=== PATIENT | female | born 1990 | race Caucasian/White ===

== ENCOUNTER 2018-06-09 11:06 | Inpatient (IN) | payer BC ==
[~2018-06-09 11:06] MED LIST: ROPIVACAINE 5MG/ML 20ML VIAL ONE; SODIUM CHLORIDE 0.9% 100 ML BAG ONE; fentaNYL (PF) 50 MCG/ML 5 ML AMP ONE
[2018-06-09] MEDS: LACTATED RINGERS 1,000 ML IV SCH ×2 (12:00→20:14)
[2018-06-09 12:15] LABS: Basophils % (A) 0 %; Eosinophils # (A) 0.1 k/uL (0-0.7); Eosinophils % (A) 1 %; HCT 42.1 % (34.0-46.0); HGB 14.1 gm/dL (11.4-16.0); Lymphocytes # (A) 1.8 k/uL (1.0-4.8); Lymphocytes % (A) 12 %; MCH 28.8 pg (25.0-35.0); MCHC 33.5 g/dL (31.0-37.0); MCV 85.8 fL (80.0-100.0); Mean Platelet Volume 7.2; Monocytes # (A) 0.7 k/uL (0-1.0); Monocytes % (A) 5 %; Neutrophils # (A) 12.1 k/uL (1.3-7.7); Neutrophils % (A) 81 %; Platelet Count 265 k/uL (150-450); RBC 4.91 m/uL (3.80-5.40); RDW 14.2 % (11.5-15.5)
[2018-06-09 12:25] LABS: ALT 33 U/L (9-52); AST 24 U/L (14-36); Blood Urea Nitrogen 9 mg/dL (7-17); LDH 469 U/L (313-618)
[2018-06-09 12:27] LABS: Amorphous Sediment,Urine Rare /hpf; Appearance,Urine Clear (Clear); Bacteria,Urine Occasional /hpf; Bilirubin,Urine Negative (Negative); Blood,Urine Negative (Negative); Color,Urine Light Yellow; Glucose,Urine (UA) Negative (Negative); Ketones,Urine Negative (Negative); Leukocyte Esterase,Urine Moderate (Negative); Nitrite,Urine Negative (Negative); Protein,Urine Negative (Negative); RBC,Urine 1 /hpf (0-5); Specific Gravity,Urine 1.006 (1.001-1.035); Squamous Epithelial Cell,Urine 3 /hpf (0-4); Urobilinogen,Urine <2.0 mg/dL (<2.0); WBC,Urine 25 /hpf (0-5)
[2018-06-09] MEDS ORDERED: DINOPROSTONE 10 MG INSERT.ER VAGINAL ONE (12:51)
[2018-06-09 13:03] VITALS: BMI 37.3
--- NOTE | 2018-06-09 13:11 | P.HPOB ---
History of Present Illness H&P Date: 06/09/18 Chief Complaint: High blood pressure This patient is a pleasant 28-year-old 1 para 0 female estimated date of confinement 06/30/2018 estimated gestational age 37-0/7 weeks who presents to labor and delivery after calling me this morning with an elevated blood pressure at home of 147/97. Patient's care is per Dr. Sanders has been complicated by maternal mild pulmonary stenosis. Patient states this was diagnosed at age 25 after having a routine physical exam. It causes her no physical limitations and she is asymptomatic from this. She follows with Dr. Cisse, cardiology, before this. Most recently she had a cardiac echo that showed an EF of 55% with an average pulmonary gradient of 8. The health analytics consultant and maternal- medicine feel that her stenosis is mild and should not have implications for delivery. Patient's had no blood pressure problems in this however has had some mild elevations of 130/88 at 32 weeks. Patient' s blood pressure care and admission is 172/111. Serial repeat blood pressures are in the 140-150/90-100 range. Patient is completely asymptomatic without complaints of headache, blurry vision, swelling, right upper gastric pain. heart tones are reactive. Most recent obstetrical ultrasound showed the infant's weight to be approximately 6 pounds with normal KARUNA. Review of Systems Genitourinary: Reports Menstruation: Reports amenorrhea Past Medical History Additional Past Medical History / Comment(s): Patient has known congenital mild pulmonary stenosis. Irritable bowel syndrome History of Any Multi-Drug Resistant Organisms: None Reported Past Surgical History: No Surgical Hx Reported Past Psychological History: No Psychological Hx Reported Smoking Status: Never smoker Past Alcohol Use History: None Reported Past Drug Use History: None Reported Medications and Allergies Home Medications Medication Instructions Recorded Confirmed Type 78/Iron/Folate 1/Dha 1 tab PO ONCE 04/28/18 06/09/18 History [Prenate Dha Softgel] Allergies Allergy/AdvReac Type Severity Reaction Status Date / Time azithromycin Allergy Rash/Hives Verified 06/09/18 11:32 minocycline HCl Allergy Rash/Hives Verified 06/09/18 11:32 [From Minocin] minocycline [From Minocin] AdvReac Rash/Hives Verified 06/09/18 11:32 Exam Intake and Output 06/08/18 06/09/18 06/09/18 22:59 06:59 14:59 Other: Weight 104.78 kg - OBG Physical Exam Abdomen: bowel sounds normal, no diffuse tenderness, no bruit present, no guarding noted, no hepatomegaly, no splenomegaly, no mass Vulva: both: normal Vagina: normal moisture, no discharge Cervix: no lesion (Cervix is 1 cm and thick.), no discharge Uterus: enlarged (Fundal height in the office is 37 cm) Results Preeclampsia labs are normal. heart tracing is reactive. Group B strep was negative. Blood type is O+. Result Diagrams: 06/09/18 12:00 06/09/18 12:00 Abnormal Lab Results - Last 24 Hours (Table) 06/09/18 06/09/18 Range/Units 12:00 12:00 WBC 15.0 H (3.8-10.6) k/uL Neutrophils # 12.1 H (1.3-7.7) k/uL Ur Leukocyte Esterase Moderate H (Negative) Urine WBC 25 H (0-5) /hpf Amorphous Sediment Rare H (None) /hpf Urine Bacteria Occasional H (None) /hpf Assessment and Plan Assessment: This is a pleasant 28-year-old 1 para 0 female 37-0/7 weeks gestation who is admitted to the hospital with gestational hypertension. Patient is asymptomatic and does not have features consistent with preeclampsia. Due to the significant blood pressure elevation at 37 weeks, we are recommending to proceed with induction of labor and delivery. I discussed this with the patient and her and they understand and wish to proceed. Because she has an unfavorable cervix and blood pressures are stable at this time, we'll proceed with Cervidil placement and then Pitocin induction thereafter. If there is evidence of concerns or uncontrollable blood pressure then we will proceed with section. (1) 37 weeks gestation of Current Visit: Yes Status: Acute Code(s): Z3A.37 - 37 WEEKS GESTATION OF SNOMED Code(s): 43127555 (2) Gestational hypertension Current Visit: Yes Status: Acute Code(s): O13.9 - GESTATIONAL HTN W/O SIGNIFICANT PROTEINURIA, UNSP TRIMESTER SNOMED Code(s): 079171845 (3) Pulmonary stenosis Current Visit: Yes Status: Chronic Code(s): I37.0 - NONRHEUMATIC PULMONARY VALVE STENOSIS SNOMED Code(s): 84079381
[2018-06-09 13:33] LABS: INR 0.9 (<1.2); Partial Thromboplastin Time 24.8 sec (22.0-30.0); Prothrombin Time 9.3 sec (9.0-12.0)
[2018-06-09] MEDS: LABETALOL 100 MG TAB PO SCH (13:44)
--- NOTE | 2018-06-09 17:52 | P.PN ---
Progress Note - Text Progress Note Date: 06/09/18 Patient's blood pressures have come down to 130-140 over 80-90s. I did give the patient one dose of oral labetalol 100 mg at around 2:00. Patient continues to be without complaints. Cervidil was placed. I discussed induction process and will begin Pitocin after the Cervidil was removed in the morning. heart tones are reactive.
[2018-06-09] MEDS: BUTORPHANOL 1 MG/ML 1 ML VIAL IV PRN (22:18)
[2018-06-10] MEDS ORDERED: LABETALOL 100 MG TAB PO SCH (00:36)
[2018-06-10] MEDS: BUTORPHANOL 1 MG/ML 1 ML VIAL IV PRN (01:36)
[2018-06-10] MEDS: LABETALOL 100 MG TAB PO SCH ×3 (01:36→15:01)
[2018-06-10] MEDS: LACTATED RINGERS 1,000 ML IV SCH ×3 (04:43→21:19)
[2018-06-10] MEDS ORDERED: TERBUTALINE 1 MG/ML VIAL SQ PRN (05:37)
[2018-06-10] MEDS ORDERED: OXYTOCIN 20 UNITS/1000 ML NS 1,000 ML IV SCH ×2 (05:37→13:37)
[2018-06-10] MEDS ORDERED: OXYTOCIN 10 UNIT/ML 1 ML VIAL IM PRN (05:37)
[2018-06-10] MEDS ORDERED: CARBOPROST TROMETHAMINE 250 MCG/ML 1 ML AMP IM PRN (05:37)
[2018-06-10] MEDS ORDERED: METHYLERGONOVINE 0.2 MG/ML 1 ML AMP IM PRN (05:37)
[2018-06-10] MEDS ORDERED: LIDOCAINE 1% INJ 10MG/ML (20 ML MDV) SQ PRN (05:37)
[2018-06-10 08:03] LABS: Basophils % (A) 0 %; Eosinophils % (A) 0 %; HCT 41.4 % (34.0-46.0); HGB 13.6 gm/dL (11.4-16.0); Lymphocytes # (A) 1.1 k/uL (1.0-4.8); Lymphocytes % (A) 5 %; MCH 28.4 pg (25.0-35.0); MCHC 32.8 g/dL (31.0-37.0); MCV 86.6 fL (80.0-100.0); Mean Platelet Volume 7.1; Monocytes # (A) 0.7 k/uL (0-1.0); Monocytes % (A) 3 %; Neutrophils # (A) 20.3 k/uL (1.3-7.7); Neutrophils % (A) 91 %; Platelet Count 277 k/uL (150-450); RBC 4.78 m/uL (3.80-5.40); RDW 14.2 % (11.5-15.5); WBC 22.3 k/uL (3.8-10.6)
[2018-06-10] MEDS ORDERED: diphenhydrAMINE 25 MG CAP PO PRN (13:37)
[2018-06-10] MEDS ORDERED: HYDROCORTISONE 2.5% RECTAL CREAM 30 GM TUBE RECTAL PRN (13:37)
[2018-06-10] MEDS ORDERED: WITCH HAZEL 1 EACH MED..PAD TOPICAL PRN (13:37)
[2018-06-10] MEDS ORDERED: SIMETHICONE 80 MG CHEWABLE PO PRN (13:37)
[2018-06-10] MEDS ORDERED: diphenhydrAMINE 50 MG/ML 1 ML VIAL IVP PRN ×2 (13:37)
[2018-06-10] MEDS ORDERED: LANOLIN CREAM 5 GM TUBE TOPICAL PRN (13:37)
[2018-06-10] MEDS ORDERED: ZOLPIDEM 5 MG TAB PO PRN (13:37)
[2018-06-10] MEDS ORDERED: diphenhydrAMINE 50 MG CAP PO PRN (13:37)
[2018-06-10] MEDS ORDERED: BENZOCAINE/MENTHOL SPRAY 1 GM/SPRAY AEROSOL TOPICAL PRN (13:37)
--- NOTE | 2018-06-10 16:09 | P.PROBDLV ---
Vaginal Delivery Note - . Vaginal Delivery Note: The patient progressed to complete dilation after oxytocin induction of labor and artificial rupture membranes with clear fluid noted. She did receive epidural anesthesia. Once reaching complete dilation, she began pushing. Infant's head came to a crown. With one further push the infant rather precipitously delivered across the perineum followed immediately by the body. Infant was placed on mother's abdomen and nose and mouth were bulb suctioned. Cord was clamped and cut and was taken to warmer for evaluation. A viable female was noted with scores of 8 at 1 minute and 9 at 5 minutes and weight was 6 lbs. 10 oz. Her placenta delivered shortly thereafter, intact, with a three-vessel cord. Cord blood was obtained secondary to O+ blood type. Uterus contracted fairly well after oxytocin was given and uterine massage was carried out. Inspection of the perineum revealed a second-degree perineal laceration. This area was anesthetized with 1% lidocaine and then sutured with 3-0 and 2-0 Vicryl suture in the usual multilayer fashion. Estimated blood loss is approximately 200 mL's. Both mother and infant are in stable condition.
[2018-06-10] MEDS: SENNOSIDES-DOCUSATE SODIUM 1 EACH TAB PO SCH (20:19)
[2018-06-10] MEDS: IBUPROFEN 600 MG TAB PO PRN (22:50)
[2018-06-11] MEDS: LABETALOL 100 MG TAB PO SCH ×3 (00:07→23:46)
[2018-06-11] MEDS: IBUPROFEN 600 MG TAB PO PRN ×2 (04:23→09:58)
[2018-06-11 08:57] LABS: Basophils % (A) 0 %; Eosinophils # (A) 0.1 k/uL (0-0.7); Eosinophils % (A) 1 %; HCT 38.2 % (34.0-46.0); HGB 12.7 gm/dL (11.4-16.0); Lymphocytes # (A) 2.1 k/uL (1.0-4.8); Lymphocytes % (A) 11 %; MCH 29.2 pg (25.0-35.0); MCHC 33.3 g/dL (31.0-37.0); MCV 87.6 fL (80.0-100.0); Mean Platelet Volume 7.3; Monocytes # (A) 0.7 k/uL (0-1.0); Monocytes % (A) 4 %; Neutrophils # (A) 15.4 k/uL (1.3-7.7); Neutrophils % (A) 83 %; Platelet Count 228 k/uL (150-450); RBC 4.35 m/uL (3.80-5.40); RDW 14.6 % (11.5-15.5); WBC 18.6 k/uL (3.8-10.6)
--- NOTE | 2018-06-11 08:59 | P.PNOBGVD ---
Subjective - Subjective Principal diagnosis: Status post vaginal delivery day #1 Interval history: Patient feels well. She denies any headaches or blurry vision. She has noticed some swelling in her lower extremities. She is breast-feeding. Lochia is decreasing. Pain is fairly well controlled with ibuprofen. Patient reports: Reports appetite normal, Reports voiding normally, Reports pain well controlled, Reports ambulating normally : doing well, nursing well Objective - Latest Vital Signs Latest vital signs: Vital Signs Temp Pulse Resp BP Pulse Ox 06/11/18 04:00 97.3 F L 71 16 131/70 06/11/18 00:00 97.8 F 89 16 133/87 06/10/18 20:00 97.8 F 93 16 122/77 06/10/18 15:30 100 18 145/75 06/10/18 15:00 100 18 139/76 06/10/18 14:30 98.4 F 100 16 134/76 06/10/18 14:15 97 16 136/77 06/10/18 14:00 110 H 16 141/75 06/10/18 13:45 115 H 16 137/76 06/10/18 13:30 117 H 16 149/84 98 Intake and Output 06/10/18 06/11/18 06/11/18 22:59 06:59 14:59 Other: # Voids 2 1 - Exam Extremities: Present: edema (Trace) Abdomen: Present: normal appearance, soft. Absent: distention, tenderness Uterus: Present: normal, firm. Absent: tenderness Assessment and Plan Assessment: Impression is status post vaginal delivery day #1, hypertension in . Plan: We'll continue monitoring today. I may hold her noontime dose of labetalol if her blood pressures have been normal this morning to see how she does without any medication. Anticipate discharge home tomorrow.
[2018-06-11] MEDS: SENNOSIDES-DOCUSATE SODIUM 1 EACH TAB PO SCH ×2 (10:55→23:46)
[2018-06-11] MEDS: ACETAMINOPHEN TAB 325 MG TAB PO PRN (20:16)
[2018-06-11 20:30] VITALS: RESP 16
[2018-06-12] MEDS: ACETAMINOPHEN TAB 325 MG TAB PO PRN (05:18)
[2018-06-12] MEDS: SENNOSIDES-DOCUSATE SODIUM 1 EACH TAB PO SCH (07:41)
--- NOTE | 2018-06-12 08:37 | P.DS ---
Providers Date of admission: 06/09/18 11:30 Expected date of discharge: 06/12/18 Attending physician: Maribel Sanders Primary care physician: Stated None Hospital Course: Please see dictated history and physical for details of patient's admission. She underwent Cervidil cervical ripening followed by oxytocin induction of labor and delivered vaginally a viable female on 06/10/2018 with scores of 8 at 1 minute and 9 at 5 minutes and weight of 6 lbs. 10 oz. Her course has been essentially uncomplicated. She was continued on labetalol for blood pressure control and this has worked very well. She denies any other symptoms. Lochia is decreasing. Pain is been fairly well-controlled with Tylenol. She is bottle feeding at this time. Vital signs are stable. Abdomen is soft with fundus firm and nontender. Extremities show negative Homans. Impression is status post vaginal delivery day #2. Plan is to discharge home today. She will be given a prescription for labetalol 100 mg twice a day. She is advised follow-up in approximately 1 week for blood pressure check in the office. Routine instructions are given. She is advised to call the office if she has any further questions or concerns prior to her appointment time. Patient does have a blood pressure cuff at home and will check her blood pressures at home. Procedures: Cervidil cervical ripening Oxytocin induction of labor Spontaneous vaginal delivery of a viable female infant on 06/10/2018 Patient Condition at Discharge: Stable Plan - Discharge Summary New Discharge Prescriptions: New Labetalol [Trandate] 100 mg PO BID@0200,1400 #28 tab Continue 78/Iron/Folate 1/Dha [Prenate Dha Softgel] 1 tab PO ONCE Discharge Medication List 78/Iron/Folate 1/Dha [Prenate Dha Softgel] 1 tab PO ONCE 04/28/18 [ History] Labetalol [Trandate] 100 mg PO BID@0200,1400 #28 tab 06/12/18 [Rx] Follow up Appointment(s)/Referral(s): Maribel Sanders DO [Doctor of Osteopathic Medicine] - 1 Week (For BP check) Activity/Diet/Wound Care/Special Instructions: Instructions 1. Do not begin any exercise program for 3 weeks. 2. Do not resume sexual relations for 3 weeks or longer if uncomfortable. 3. You may take tub baths or showers at any time. 4. You may use tampons if desired after 3 weeks. 5. Keep the area of episiotomy (stitches) clean and dry. 6. If you are not nursing, wear a good fitting, supportive bra during the day and limit fluid intake for at least 1 week to prevent breast engorgement. 7. Call the office, [phone], within the next week to make appointment for your 6 week checkup if it has not already been made. 8. Report any of the following occurrences to the doctor promptly: a. Heavy, excessive bleeding b. Chills, fever c. Burning or frequency of urination d. Pain or redness and breasts if nursing e. Increasing pain or swelling in episiotomy (stitches). In addition to the above instructions, the following additional should be followed: 1. No heavy lifting or straining (exercising) until after 6 week checkup. 2. Keep abdominal incision clean and dry: You may wear a dressing if more comfortable. 3. Make office appointment for 10 days after going home or as instructed by her doctor. Discharge Disposition: HOME SELF-CARE
[2018-06-12 10:12] VITALS: BP 146/90; PULSE 71; TEMP 97.8
[2018-06-12] MEDS: LABETALOL 100 MG TAB PO SCH (11:06)
== END 2018-06-12 14:15 | disposition home or self-care (01) | DRG 805 ==
LOC: FBPOP 11:06 → 4FBP 11:30
PROVIDERS: ADMIT Obstetrics & Gynecology; ATTEND Obstetrics & Gynecology
PROC: 3E0R3NZ Introduction of Analgesics, Hypnotics, Sedatives into Spinal Canal, Percutaneous Approach (ICD-10-PCS; principal; 2018-06-09)
PROC: 0KQM0ZZ Repair Perineum Muscle, Open Approach (ICD-10-PCS; principal; 2018-06-09)
PROC: 10E0XZZ Delivery of Products of Conception, External Approach (ICD-10-PCS; principal; 2018-06-09)
PROC: 3E033VJ Introduction of Other Hormone into Peripheral Vein, Percutaneous Approach (ICD-10-PCS; principal; 2018-06-09)
PROC: 00HU33Z Insertion of Infusion Device into Spinal Canal, Percutaneous Approach (ICD-10-PCS; principal; 2018-06-09)
PROC: 10907ZC Drainage of Amniotic Fluid, Therapeutic from Products of Conception, Via Natural or Artificial Opening (ICD-10-PCS; principal; 2018-06-09)
DX: O13.4 Gestational [pregnancy-induced] hypertension without significant proteinuria, complicating childbirth (principal); Q25.6 Stenosis of pulmonary artery; Z37.0 Single live birth; Z3A.37 37 weeks gestation of pregnancy; O70.1 Second degree perineal laceration during delivery; O62.3 Precipitate labor; O26.893 Other specified pregnancy related conditions, third trimester; Z88.1 Allergy status to other antibiotic agents; Z88.8 Allergy status to other drugs, medicaments and biological substances
CPT/HCPCS: 59025; 81001; 82565; 83615; 84450; 84460; 84520; 84550; 85025; 85384; 85610; 85730; 86850; 86900; 86901; 88307; 99213

== ENCOUNTER 2023-12-04 01:08 | Emergency (ER) | payer BC ==
[2023-12-04 01:51] VITALS: TEMP 98.5
[2023-12-04 02:04] LABS: ALT 18 U/L (4-34); AST 38 U/L (14-36); African American GFR (CKD) >90 (>60 ml/min/1.73 sqM); Albumin 4.3 g/dL (3.5-5.0); Alkaline Phosphatase 58 U/L (38-126); Anion Gap 8 mmol/L; Blood Urea Nitrogen 14 mg/dL (7-17); Calcium 8.7 mg/dL (8.4-10.2); Carbon Dioxide 19 mmol/L (22-30); Chloride 108 mmol/L (98-107); Glucose 106 mg/dL (74-99); Magnesium 1.8 mg/dL (1.6-2.3); Non-African American GFR(CKD) >90 (>60 ml/min/1.73 sqM); Potassium 4.3 mmol/L (3.5-5.1); Sodium 135 mmol/L (137-145); Total Bilirubin 1.4 mg/dL (0.2-1.3); Total Protein 7.5 g/dL (6.3-8.2)
[2023-12-04 02:05] LABS: Appearance,Urine Clear (Clear); Bilirubin,Urine Negative (Negative); Blood,Urine Negative (Negative); Color,Urine Colorless; Glucose,Urine (UA) Negative (Negative); Ketones,Urine Negative (Negative); Leukocyte Esterase,Urine Negative (Negative); Nitrite,Urine Negative (Negative); PH, Urine 6.5 (5.0-8.0); Protein,Urine Negative (Negative); Specific Gravity,Urine 1.005 (1.001-1.035); Urobilinogen,Urine <2.0 mg/dL (<2.0)
--- NOTE | 2023-12-04 02:10 | ED ---
Chest Pain HPI - General Source: patient, RN notes reviewed Mode of arrival: ambulatory Limitations: no limitations <Jose James - Last Filed: 12/04/23 02:08> - General Source: patient, RN notes reviewed Mode of arrival: ambulatory Limitations: no limitations - History of Present Illness MD Complaint: chest pain <Cathy Ken - Last Filed: 12/08/23 05:57> - General Chief Complaint: Chest Pain Stated Complaint: chest pain Time Seen by Provider: 12/04/23 02:09 - History of Present Illness Initial Comments: Quick note: 33-year-old female presenting to the ER with a chief complaint of chest pain. Patient has a past medical history significant for pulmonary valve stenosis and follows up with Dr. Cisse. She states while going to bed tonight she started to feel her heart racing. She took her blood pressure and found it to be 178/90. She denies any shortness of breath, nausea, vomiting, dizziness or lightheadedness. (Jose James) This is a 33-year-old female who presents to the emergency department for palpitations. States that she was laying in bed when she started to feel like her heart was racing out of her chest. While the above note lists chest pain, patient states that she did not have any chest pain associated with this. She also did not have any shortness of breath or other symptoms aside from the pal pitations. She does have pulmonary valve stenosis and follows with Dr. Cisse, cardiology. She checked her blood pressure and noted it as above around 178 systolically. However that day it also got as high as the 190s systolically. Not taking any blood pressure medication, but does report a significant family history of hypertension. When I went to evaluate the patient, she had been in the waiting room for several hours. At that point, she felt like her symptoms had resolved. (Cathy Ken) - Related Data Home Medications Medication Instructions Recorded Confirmed 78/Iron/Folate 1/Dha 1 tab PO ONCE 04/28/18 06/09/18 [Prenate Dha Softgel] Previous Rx's Medication Instructions Recorded Labetalol [Trandate] 100 mg PO BID@0200,1400 #28 tab 06/12/18 amLODIPine [Norvasc] 2.5 mg PO DAILY #30 tablet 12/04/23 Allergies Allergy/AdvReac Type Severity Reaction Status Date / Time azithromycin Allergy Rash/Hives Verified 12/04/23 01:17 minocycline HCl Allergy Rash/Hives Verified 12/04/23 01:17 [From Minocin] minocycline [From Minocin] AdvReac Rash/Hives Verified 12/04/23 01:17 Review of Systems ROS Other: All systems not noted in ROS Statement are negative. <Jose James - Last Filed: 12/04/23 02:08> ROS Other: All systems not noted in ROS Statement are negative. <Cathy Ken - Last Filed: 12/08/23 05:57> ROS Statement: Those systems with pertinent positive or pertinent negative responses have been documented in the HPI. Past Medical History Additional Past Medical History / Comment(s): Patient has known congenital mild pulmonary stenosis. Irritable bowel syndrome History of Any Multi-Drug Resistant Organisms: None Reported Past Surgical History: No Surgical Hx Reported Additional Past Surgical History / Comment(s): [place] Tooth Extraction Past Anesthesia/Blood Transfusion Reactions: No Reported Reaction Past Psychological History: No Psychological Hx Reported Smoking Status: Never smoker Past Alcohol Use History: Occasional Past Drug Use History: None Reported - Past Family History Father Family Medical History: Hypertension Additional Family Medical History / Comment(s): Colitis Mother Family Medical History: Hypertension <Jose James - Last Filed: 12/04/23 02:08> General Exam Limitations: no limitations <Jose James - Last Filed: 12/04/23 02:08> Limitations: no limitations General appearance: alert, in no apparent distress Head exam: Present: atraumatic, normocephalic, normal inspection Respiratory exam: Present: normal lung sounds bilaterally. Absent: respiratory distress, wheezes, rales, rhonchi, stridor Cardiovascular Exam: Present: regular rate, normal rhythm, normal heart sounds. Absent: systolic murmur, diastolic murmur, rubs, gallop, clicks Neurological exam: Present: alert, oriented X3, CN II-XII intact Psychiatric exam: Present: normal affect, normal mood Skin exam: Present: warm, dry, intact, normal color. Absent: rash <Cathy Ken - Last Filed: 12/08/23 05:57> - General Exam Comments Initial Comments: Visual Physical Exam Vital signs reviewed General: Well-appearing, nontoxic, no acute distress. Head: Normocephalic, atraumatic Eyes: PERRLA, EOMI ENT: Airway patent Chest: Nonlabored breathing Skin: No visual rash, normal skin tone Neuro: Alert and oriented 3 Musculoskeletal: No gross abnormalities (Jose James) Course Vital Signs 12/04/23 12/04/23 12/04/23 01:14 04:29 06:51 Temperature 98.5 F Pulse Rate 114 H 97 91 Respiratory 20 20 18 Rate Blood Pressure 168/117 160/101 150/108 O2 Sat by Pulse 99 100 99 Oximetry 12/04/23 07:43 Temperature Pulse Rate 90 Respiratory 18 Rate Blood Pressure 142/90 O2 Sat by Pulse 98 Oximetry Chest Pain MDM <Jose James - Last Filed: 12/04/23 02:08> <Cathy Ken - Last Filed: 12/08/23 05:57> - MDM I performed the quick note portion of this chart. Electronically signed by Jose James PA-C (Jose James) This is a 33 year old female who presents to the emergency department for palpitations. Was pt. sent in by a medical professional or institution? @ -No Did you speak to anyone other than the patient for history? @ -No Did you review nursing and triage notes? @ -Yes, and I agree, it is accurate with regards to the patient's symptoms. Were old charts reviewed? @ -No Differential Diagnosis? @ -Differential Palpitations: Ventricular arrhythmias, atrial arrhythmias, myocardial infarction, anemia, thyrotoxicosis, electrolyte imbalance, hypokalemia, pulmonary embolism, pulmonary disease, drugs, alcohol, anxiety, stress.... This is not meant to be an all-inclusive list. EKG interpreted by me (3pts min.)? @ -EKG interpreted by me demonstrating the following: Sinus rhythm. Ventricular rate 96 bpm, KS interval 133 ms, QRS duration 94 ms, QTc 405 ms. X-rays interpreted by me (1pt min.)? @ -Chest x-ray obtained, my interpretation identifies no localized consolidations or infiltrates. CT interpreted by me (1pt min.)? @ -Not obtained U/S interpreted by me (1pt. min.)? @ -Not obtained What testing was considered but not performed? (CT, X-rays, U/S, labs)? Why? @ -None What meds were considered but not given? Why? @ -None Did you discuss the management of the patient with other professionals? @ -No Did you reconcile home meds? @ -No Was smoking cessation discussed for >3mins.? @ -No Was critical care preformed (if so, how long)? @ -No Were there social determinants of health that impacted care today? How? (Homelessness, low income, unemployed, alcoholism, drug addiction, transportation, low edu. Level, literacy, decrease access to med. care, halfway, rehab)? @ -No Was there de-escalation of care discussed even if they declined? (Discuss DNR or withdrawal of care, Hospice)? @ -No What co-morbidities impacted this encounter? (DM, HTN, Smoking, COPD, CAD, Cancer, CVA, Hep., AIDS, mental health diagnosis, sleep apnea, morbid obesity)? @ -Pulmonic valve stenosis Was patient admitted / discharged? @ -Discharged. Lab work unremarkable. 2 troponins obtained, both of which remain negative. Chest x-ray reveals no acute process. Heart score is 0. Her blood pressure was consistently elevated in the emergency department. On arrival it was 168/117 and at the point of discharge it was 150/108. Patient concerned with how elevated it was at home as well and her significant family history of elevated blood pressure. Advised that we can start her on a low-dose blood pressure medication, which she was in agreement with. Prescription for amlodipine provided with dosing instructions reviewed. She was advised to take her blood pressure several times a day and keep a log of these values as well as have close follow-up with her primary care provider for reevaluation and ongoing monitoring. Undiagnosed new problem with uncertain prognosis? @ -None Drug Therapy requiring intensive monitoring for toxicity (Heparin, Nitro, Insulin, Cardizem)? @ -None Were any procedures done? @ -None Diagnosis/symptom? @ -Palpitations, elevated BP Acute, or Chronic, or Acute on Chronic? @ -Acute Uncomplicated (without systemic symptoms) or Complicated (systemic symptoms)? @ -Uncomplicated Side effects of treatment? @ -None Exacerbation, Progression, or Severe Exacerbation] @ -Not applicable Poses a threat to life or bodily function? @ -Not at this time, however if the BP were to remain consistently elevated, it increases the risk for heart attacks and strokes. Return precautions reviewed in depth, the patient is instructed to return to the emergency department with any new, worsening, or concerning symptoms. Patient verbalized understanding. This case was discussed in detail with the attending ED physician, Dr. Ayala. Presentation, findings, and treatment plan discussed in detail as well. (Cathy Ken) Disposition <Jose James - Last Filed: 12/04/23 02:08> Is patient prescribed a controlled substance at d/c from ED?: No Time of Disposition: 06:44 <Cathy Ken - Last Filed: 12/08/23 05:57> Clinical Impression: Palpitations, Elevated blood pressure reading Disposition: HOME SELF-CARE Instructions (If sedation given, give patient instructions): Heart Palpitations (ED), Hypertension (ED) Additional Instructions: Return to the emergency department with any new, worsening, or concerning symptoms. Begin taking the blood pressure medication once daily. Check your blood pressure a few times each day at different times during the day and keep a log of these values. Continue trying to get in with a primary care provider for ongoing medical care. Prescriptions: amLODIPine [Norvasc] 2.5 mg PO DAILY #30 tablet Referrals: None,Stated [Primary Care Provider] - 1-2 days
[2023-12-04 03:42] LABS: Basophils # (A) 0.1 k/uL (0-0.2); Basophils % (A) 1 %; Eosinophils # (A) 0.1 k/uL (0-0.7); Eosinophils % (A) 1 %; HGB 13.6 gm/dL (11.4-16.0); Lymphocytes # (A) 1.9 k/uL (1.0-4.8); Lymphocytes % (A) 19 %; MCH 28.2 pg (25.0-35.0); MCHC 32.5 g/dL (31.0-37.0); MCV 86.8 fL (80.0-100.0); Mean Platelet Volume 7.7; Monocytes # (A) 0.6 k/uL (0-1.0); Monocytes % (A) 5 %; Neutrophils # (A) 7.4 k/uL (1.3-7.7); Neutrophils % (A) 73 %; Platelet Count 255 k/uL (150-450); RBC 4.83 m/uL (3.80-5.40); RDW 13.5 % (11.5-15.5); WBC 10.1 k/uL (3.8-10.6)
--- NOTE | 2023-12-04 03:52 | XR ---
EXAM: XR Chest, 2 Views CLINICAL HISTORY: ITS.REASON XR Reason: Chest Pain TECHNIQUE: Frontal and lateral views of the chest. COMPARISON: No relevant prior studies available. FINDINGS: Lungs: No consolidation or mass. Pleural space: No effusion. Heart: No cardiomegaly. Bones/joints: No acute findings. IMPRESSION: No acute cardiopulmonary process.
[2023-12-04 03:59] LABS: INR 0.9 (<1.2); Prothrombin Time 10.3 sec (10.0-12.5)
[2023-12-04] MEDS: amLODIPine 5 MG TAB PO STA (06:50)
[2023-12-04 07:35] VITALS: RESP 18
[2023-12-04 08:24] VITALS: BP 142/90; PULSE 90
== END 2023-12-04 07:45 | disposition home or self-care (01) ==
LOC: EC 01:08
DX: R00.2 Palpitations (principal); R03.0 Elevated blood-pressure reading, without diagnosis of hypertension; Z88.6 Allergy status to analgesic agent; Z88.8 Allergy status to other drugs, medicaments and biological substances
CPT/HCPCS: 36415; 71046; 80053; 81003; 83735; 84484; 85025; 85379; 85610; 85730; 93005; 99285